=== PATIENT | male | born 1950 | race Caucasian/White ===

== ENCOUNTER → 2021-11-26 | Outpatient (CLI) | payer MEDICARE ==
[~2021-11-26] VITALS: Ht 175 cm; Wt 105.0 kg
[~2021-11-26] MED LIST: CATHETER FLUSH 10 ML SYR IVP PRN; REGADENOSON 0.4 MG/5 ML SYR (LEXISCAN) IV ONE
[2021-11-26 09:32] VITALS: BP 124/80
--- NOTE | 2021-11-26 11:31 | Cardiology Stress Test Report ---
Stress Test Report Date of Procedure/Referring: Date of Procedure: Nov 26, 2021 PCP Chen Hussein MD Admitting Physician Indications: 84 Baseline Blood Pressure: Blood Pressure Systolic: 124 Blood Pressure Diastolic: 80 Baseline Vitals Vital Signs Date Time Temp Pulse Resp B/P (MAP) Pulse Ox O2 Delivery O2 Flow Rate FiO2 11/26/21 09:32 84 124/80 (95) Baseline EKG: Baseline EKG: NSR Summary After explaining the procedure to the patient, he signed a consent and then brought to the stress nuclear laboratory. Patient received 0.4 mg Lexiscan for stress test, ECG, heart rate and blood pressure were monitored continuously. Resting and stress dose of radio tracer were injected, imaging was acquired and reviewed in short axis, horizontal long axis and vertical long axis views. TID: 0.95 SSS: 12 SDS: 6 EF: 62 1. Patient tolerated Lexiscan well 2. Reversible ischemia involving the whole inferior wall and inferolateral wall 3. Normal left ventricular size, EF 62% CHEN HUSSEIN MD Nov 26, 2021 11:31
== END ==
LOC: CARD 08:15
PROVIDERS: ATTEND Internal Medicine Cardiovascular Disease
DX: I25.10 Atherosclerotic heart disease of native coronary artery without angina pectoris (principal); I10 Essential (primary) hypertension
CPT/HCPCS: 78452; 93017; A9502

== ENCOUNTER 2021-12-05 10:00 | Day surgery (SDC) | payer MEDICARE ==
[~2021-12-05] VITALS: Ht 182.9 cm; Wt 101.0 kg
[2021-12-05] VITALS (17 sets, daily range): BP systolic 105–138; BP diastolic 65–105
--- NOTE | 2021-12-05 09:14 | Diagnostic Imaging Report ---
EXAMINATION: Chest 1 view HISTORY: ABN STRESS TEST COMPARISON: None available. FINDINGS: Heart size and pulmonary vasculature are normal. The lungs are clear without consolidation, pleural effusion, or pneumothorax. The osseous structures are intact. IMPRESSION: 1. No acute radiographic abnormality in the chest. Dictated by: Dictated on workstation # [id number]
[2021-12-05 09:15] LABS: HEMATOCRIT 47 % (40-54); HEMOGLOBIN 14.9 g/dL (13.3-17.7); MEAN CORPUSCULAR HEMOGLOBIN 29 pg (25-34); MEAN CORPUSCULAR HGB CONC 32 g/dL (32-36); MEAN CORPUSCULAR VOLUME 92 fL (80-99); MEAN PLATELET VOLUME 12.3 fL (9.0-12.2); PLATELET COUNT 214 10^3/uL (130-400); WHITE BLOOD COUNT 11.2 10^3/uL (4.3-11.0)
[2021-12-05 09:16] LABS: BILIRUBIN,URINE NEGATIVE (NEGATIVE); CLARITY,URINE SL CLOUDY; COLOR,URINE YELLOW; GLUCOSE, URINE (UA) NEGATIVE (NEGATIVE); KETONES,URINE NEGATIVE (NEGATIVE); LEUKOCYTE ESTERASE ,URINE NEGATIVE (NEGATIVE); NITRITE,URINE NEGATIVE (NEGATIVE); PH,URINE 5.5 (5-9); PROTEIN,URINE NEGATIVE (NEGATIVE)
[2021-12-05 09:34] LABS: ALBUMIN 3.7 GM/DL (3.2-4.5); BILIRUBIN,TOTAL 0.4 MG/DL (0.1-1.0); CALCIUM 9.4 MG/DL (8.5-10.1); CREATININE SERUM 1.35 MG/DL (0.60-1.30); TOTAL PROTEIN 6.9 GM/DL (6.4-8.2)
[2021-12-05 09:41] LABS: BACTERIA,URINE NEGATIVE /HPF; SQUAMOUS EPITHELIAL CELL,UR 0-2 /HPF
[2021-12-05 09:48] LABS: INR 0.9 (0.8-1.4); PROTHROMBIN TIME PATIENT 12.6 SEC (12.2-14.7)
[~2021-12-05 10:00] MED LIST changes: -CLOP75TA28 PO; +HEParin (CATH LAB) 2,000 ML IV ONE; +LIDOCAINE 1% INJ 50 ML (XYLOCAINE) VIAL ONE; +NS IV 1000 ML 1,000 ML IV SCH; +NS IV 1000 ML 1,000 ML ONE
[2021-12-05] MEDS ORDERED: VERAPAMIL 5 MG/2 ML (CALAN) VIAL IV ONE ×2 (10:11→10:15)
[2021-12-05] MEDS ORDERED: HEParin 1000 UNIT/ML (10ML VIAL) FOR BOLUS ONE (10:11)
[2021-12-05] MEDS ORDERED: MIDAZOLAM 5 MG/5 ML (VERSED) VIAL ONE (10:11)
[2021-12-05] MEDS ORDERED: NITRO DRIP 25000 MCG/D5W 250 ML IV ONE (10:11)
[2021-12-05] MEDS ORDERED: fentaNYL INJ 100 MCG/2 ML AMP ONE (10:11)
--- NOTE | 2021-12-05 10:18 | Conscious Sedation/ASA ---
Conscious Sedation Pre-Proced Time 10:18 ASA Score 3 For ASA 3 and 4: Consider anesthesia and medical clearance. Also, for patients with a history of failed moderate sedation consider anesthesia. Airway Lungs Heart ASA score ASA 1: a normal healthy patient ASA 2: a patient with a mild systemic disease (mid diabetes, controlled hypertension, obesity x ASA 3: a patient with a severe systemic disease that limits activity (angina, COPD, prior Myocardial infarction) ASA 4: a patient with an incapacitating disease that is a constant threat to life (CHF, renal failure) ASA 5: a moribund patient not expected to survive 24 hrs. (ruptured aneurysm) ASA 6: a declared brain- patient whose organs are being harvested. For emergent operations, add the letter E after the classification Mallampati Classification Grade 3 Sedation Plan Analgesia, Amnesia, Plan communicated to team members, Discussed options with patient/fam, Discussed risks with patient/fam The patient is an appropriate candidate to undergo the planned procedure, sedation, and anesthesia. The patient immediately re-assessed prior to indication. CHEN ESCALONA MD Dec 05, 2021 10:18
[2021-12-05] MEDS ORDERED: CLOPIDOGREL 300 MG (PLAVIX) TABLET PO ONE (11:22)
[2021-12-05] MEDS ORDERED: ASPIRIN 325 MG (5 GR) TABLET ONE (11:22)
[2021-12-05] MEDS ORDERED: NS IV 1000 ML 1,000 ML IV SCH (11:30)
[2021-12-05] MEDS ORDERED: PATIENT MAY USE OWN MEDS, ALL PO SCH (11:30)
--- NOTE | 2021-12-05 11:31 | Cardiac Cath Report ---
Cardiac Cath Report Physician (s)/Editor Greeting Card (s) Physician CHEN ESCALONA MD Pre-Procedure Diagnosis Pre-Procedure Diagnosis: Coronary artery disease Post-Procedure Note Procedure Start Date: Dec 05, 2021 Name of Procedure: Left heart catheterization Stenting to the circumflex artery Findings/Procedure Note PROCEDURE NOTE: 71-year-old gentleman with extensive history of coronary artery disease multiple interventions in the past, peripheral arterial disease. Had an abnormal stress test scheduled for cardiac catheterization possible PTCA. After explaining the procedure to the patient, all pros and cons were explained, all questions were answered. The patient signed the consent and then he was placed on the cardiac catheterization laboratory. Groin was prepped SL fashion local anesthesia was used. Sheath placed in the right femoral artery, I attempted multiple times to access the right radial artery without success. Patient had stent in the abdominal aorta extending in the right common iliac artery. Bradford right was advanced over a long J-wire to the left ventricular cavity, pressure was measured, pullback LV to aorta was done, intubated the right coronary artery and angiogram was done then exchanged over long J-wire and used Bradford left catheter engaged the left system and angiogram was done. Patient had total occlusion of the right coronary artery receiving collaterals from the left, severe stenosis at the mid circumflex artery and occlusion of the proper circumflex artery. 6000 units of heparin were given, FL guide was used and BMW wire was advanced to the distal obtuse marginal branch, predilatation with a 3 x 15 balloon then deployment of jany point stent 3 x 15 mm expanded to 3.1 mm with excellent results. The artery beyond the stent is a tortuous artery. The proper circumflex artery is occluded and continue to be occluded. At the end of the procedure the sheath was removed. Closure device was deployed FINDINGS: Hemodynamics LV 139/17, end-diastolic pressure of 17 Aorta 120/69 mean of 76 ANATOMY: Left Main is free of obstructive disease Left Anterior Descending is tortuous artery with mild to moderate disease. Left Circumflex is tortuous artery, severe stenosis/subtotal occlusion at the midportion, the proper circumflex artery is and receiving collaterals with very slow flow, the occluded first obtuse marginal branch is tortuous artery. Successful balloon angioplasty and stenting using jany point stent 3 x 15 mm expanded to 3.1 mm with excellent results. Right Coronary Artery is totally occluded getting filled by collaterals from the left system LV Gram was not done, pressure was measured CONCLUSION: 1. Severe/subtotal occlusion at the mid circumflex artery with successful deployment of a jany point stent 3 x 50 mm expanded to 3.1 mm with excellent results. The first obtuse marginal branch is a tortuous artery with moderate disease, the proper circumflex artery is occluded with sluggish flow by collaterals distally. 2. Total occlusion at the proximal right coronary artery, dominant artery getting collaterals from the left filleting the right system 3. Tortuous LAD calcified with mild to moderate disease 4. Aortic valve stenosis, mild to moderate at most by gradient 5. Abdominal aortic stent extending into the right common iliac and common femoral artery noted by fluoroscopy DISCUSSION AND RECOMMENDATION: Patient was loaded with aspirin and Plavix, continue to maximize medical therapy Anesthesia Type: Conscious Sedation Estimated blood loss (mL): 30 ml Contrast Amount: 105 ml Total Radiation Dose: 1488 mGy Post-Procedure Diagnosis Post-operative diagnosis: Coronary artery disease Peripheral arterial disease Hypertension Hyperlipidemia CHEN ESCALONA MD Dec 05, 2021 11:31
[2021-12-05] MEDS: buPROPion SR 100 MG (WELLBUTRIN SR) TAB PO SCH (20:15)
[2021-12-06 04:00] VITALS: BP 110/80
[2021-12-06 05:39] LABS: HEMATOCRIT 42 % (40-54); HEMOGLOBIN 13.4 g/dL (13.3-17.7); MEAN CORPUSCULAR HEMOGLOBIN 30 pg (25-34); MEAN CORPUSCULAR HGB CONC 32 g/dL (32-36); MEAN CORPUSCULAR VOLUME 93 fL (80-99); MEAN PLATELET VOLUME 12.5 fL (9.0-12.2); PLATELET COUNT 163 10^3/uL (130-400); WHITE BLOOD COUNT 8.2 10^3/uL (4.3-11.0)
--- NOTE | 2021-12-06 05:44 | Discharge Inst-Post CATH ---
Discharge Inst-CATH/EP Problems Reviewed?: Yes Post Cardiac Cath/EP D/C Inst Follow Up/Plan Appointment with Dr Hussein in 2-4 weeks <b>CARDIAC CATH/EP PROCEDURE DISCHARGE INSTRUCTIONS</b> ACTIVITY * Go Home directly and rest. * Limit activity of the leg (or wrist if it was used) for 7 days including aerobics, swimming, jogging, bicycling, etc. * Restrict stair-climbing for 7 days if possible, if not, climb up with your non-cath leg, then bring together on the same step. * Avoid lifting, pushing, pulling or excessive movement of the affected extremity for 7 days. * Customary sexual activity may be resumed after 2 days-use caution not to use a position that strains or causes pain to the affected extremity. * No driving for 24 hours. * NO SMOKING. * Avoid straining for bowel movements for 7 days. * Gentle walking on level ground is allowed. * Returning to work will depend on the type of procedure and the results. Your doctor will discuss this with you. CALL YOUR DOCTOR FOR ANY OF THE FOLLOWING: *If bleeding from the puncture site occurs- Apply gentle pressure to site with clean cloth and call your doctor or EMS. * If a knot or lump forms under the skin, increases in size, or causes pain. * If bruising appears to be worsening or moving further down your leg instead of disappearing. * Temperature above 101 F. CARE OF YOUR GROIN INCISION; * Bruising or purple discoloration of the skin near the puncture site is common. * You may shower only, no bathtub bathing for 5 days. Be careful to avoid slipping as your leg may feel stiff. * If a closure device was used on your femoral artery, please see the attached guide regarding care of the device and your leg. * Leave dressing on FOR 24 hours. CARE OF YOUR WRIST INCISION; * Bruising or purple discoloration of the skin near the puncture site is common. * You may shower. * DO NOT submerge wrist. * Leave dressing on FOR 24 hours. CHEN HUSSEIN MD Dec 06, 2021 05:44
[2021-12-06 05:47] LABS: POTASSIUM 3.8 MMOL/L (3.6-5.0)
[2021-12-06 05:48] LABS: CALCIUM 9.1 MG/DL (8.5-10.1)
[2021-12-06 05:53] LABS: CREATININE SERUM 1.22 MG/DL (0.60-1.30)
[2021-12-06] MEDS ORDERED: LEVOTHYROXINE 125 MCG (LEVOTHROID) TABLET PO SCH (06:30)
[2021-12-06 08:00] VITALS: BP 126/81
[2021-12-06] MEDS ORDERED: KCL 10 MEQ TAB (MICRO K) PO SCH (08:00)
--- NOTE | 2021-12-06 08:04 | Cardiology Progress Note ---
Subjective Date Seen by Provider: Dec 06, 2021 Time Seen by Provider: 08:03 Subjective/Events-last exam Patient was seen at bedside, laying down comfortably, denied any chest pain. Review of Systems General: No Chills, No Night Sweats, No Fatigue, No Malaise, No Appetite, No Other HEENT: No Head Aches, No Visual Changes, No Eye Pain, No Ear Pain, No Dysphasia, No Sinus Congestion, No Post Nasal Drip, No Sore Throat, No Other Pulmonary: No Dyspnea, No Cough, No Pleuritic Chest Pain, No Other Cardiovascular: No: Chest Pain, Palpitations, Orthopnea, Paroxysmal Noc. Dyspnea, Edema, Lt Headedness, Other Objective-Cardiology Exam Last Set of Vital Signs Vital Signs 12/06/21 04:00 Temp 36.4 Pulse 72 Resp 16 B/P (MAP) 110/80 (90) Pulse Ox 94 O2 Delivery Nasal Cannula O2 Flow Rate 2.00 I&O Intake and Output 12/06/21 00:00 Intake Total 250 ml Output Total 50 ml Balance 200 ml Intake Oral 250 ml Output Urine Total 50 ml General: Alert, Oriented X3, Cooperative HEENT: Atraumatic, PERRLA Neck: Supple, No JVD, No Thyromegaly Lungs: Clear to Auscultation, Normal Air Movement Heart: Regular Rate, Normal S1, Normal S2, No Murmurs Abdomen: Normal Bowel Sounds, Soft, No Tenderness, No Hepatosplenomegaly, No Masses Extremities: No Clubbing, No Cyanosis, No Edema, Normal Pulses, No Tenderness/Swelling Skin: No Rashes, No Breakdown, No Significant Lesion Neuro: Normal Gait, Normal Speech, Strength at 5/5 X4 Ext, Normal Tone, Sensation Intact Psych/Mental Status: Mental Status NL, Mood NL Results Lab Laboratory Tests 12/05/21 09:05 12/06/21 05:15 A/P-Cardiology Assessment/Plan Coronary artery disease, status post cardiac catheterization and stenting to the circumflex artery, occluded right coronary artery. 1. Severe/subtotal occlusion at the mid circumflex artery with successful deployment of a jany point stent 3 x 50 mm expanded to 3.1 mm with excellent results. The first obtuse marginal branch is a tortuous artery with moderate disease, the proper circumflex artery is occluded with sluggish flow by collaterals distally. 2. Total occlusion at the proximal right coronary artery, dominant artery getting collaterals from the left filleting the right system 3. Tortuous LAD calcified with mild to moderate disease 4. Aortic valve stenosis, mild to moderate at most by gradient 5. Abdominal aortic stent extending into the right common iliac and common femoral artery noted by fluoroscopy Hypertension, monitor blood pressure, restart home medication Mild aortic valve stenosis, noted on echo. Hyperlipidemia, monitor lipids Patient was educated in length about compliance with medication especially with aspirin and Plavix CHEN ESCALONA MD Dec 06, 2021 08:04
[2021-12-06] MEDS ORDERED: CLOP75TA28 PO (08:06)
[2021-12-06] MEDS: buPROPion SR 100 MG (WELLBUTRIN SR) TAB PO SCH (08:13)
[2021-12-06] MEDS ORDERED: FUROSEMIDE 20 MG (LASIX) TAB PO SCH (09:00)
[2021-12-06] MEDS ORDERED: NON-FORMULARY MEDICATION 1 EA EA (Potassium Chloride 10 MEQ) PO SCH (09:00)
[2021-12-06] MEDS ORDERED: amLODIPine 10 MG (NORVASC) TAB PO SCH (09:00)
[2021-12-06] MEDS ORDERED: CLOPIDOGREL 75 MG (PLAVIX) TABLET PO SCH (09:00)
[2021-12-06] MEDS ORDERED: ASPIRIN E.C. 81 MG (ECOTRIN) TAB PO SCH (09:00)
[2021-12-06] MEDS ORDERED: LEVOTHYROXINE SODIUM 125 MCG PO SCH (09:00)
[2021-12-06] MEDS ORDERED: TAMSULOSIN 0.4 MG (FLOMAX) CAP PO SCH (09:00)
== END 2021-12-06 11:24 | disposition home or self-care (01) ==
LOC: CATH 10:00 → CSD 11:58 → CATH 12-06 11:24
PROVIDERS: ATTEND Internal Medicine Cardiovascular Disease
DX: I25.10 Atherosclerotic heart disease of native coronary artery without angina pectoris (principal); I25.82 Chronic total occlusion of coronary artery; I35.0 Nonrheumatic aortic (valve) stenosis; I73.9 Peripheral vascular disease, unspecified; I10 Essential (primary) hypertension; E78.2 Mixed hyperlipidemia; E03.9 Hypothyroidism, unspecified; N40.0 Benign prostatic hyperplasia without lower urinary tract symptoms; Z86.73 Personal history of transient ischemic attack (TIA), and cerebral infarction without residual deficits; Z79.890 Hormone replacement therapy; Z79.82 Long term (current) use of aspirin; Z79.899 Other long term (current) drug therapy; Z87.891 Personal history of nicotine dependence; Z95.5 Presence of coronary angioplasty implant and graft
CPT/HCPCS: 71045; 80048; 80053; 80061; 81000; 85027 ×2; 85610; 85730; 87081; 93005; 93458; C1725; C1760; C1769; C1874; C1894; C9600; 36415

== ENCOUNTER → 2021-12-05 | Outpatient (CLI) | payer MEDICARE ==
[~2021-12-05] MED LIST changes: +AMLO10TA4 PO; +ASPI-1238 PO; +ATOR20TA66 PO; +BUPR100T8 PO; -CATHETER FLUSH 10 ML SYR IVP PRN; +CLOP75TA28 PO; +FURO20TA4 PO; +LEVO125C4 PO; +POTA10CA43 PO; -REGADENOSON 0.4 MG/5 ML SYR (LEXISCAN) IV ONE; +TMSL.4C PO
== END ==
LOC: CARD 11:15
PROVIDERS: ATTEND Internal Medicine Cardiovascular Disease
DX: I10 Essential (primary) hypertension (principal); I25.10 Atherosclerotic heart disease of native coronary artery without angina pectoris
CPT/HCPCS: 93306

== ENCOUNTER → 2022-07-26 | Outpatient (CLI) | payer MEDICARE ==
[~2022-07-26] MED LIST changes: +BUPR-104 PO; -BUPR100T8 PO; +CLOP75TA28 PO; -HEParin (CATH LAB) 2,000 ML IV ONE; -LIDOCAINE 1% INJ 50 ML (XYLOCAINE) VIAL ONE; -NS IV 1000 ML 1,000 ML IV SCH; -NS IV 1000 ML 1,000 ML ONE
[2022-07-26 08:29] LABS: BASOPHILS # (AUTO) 0.1 10^3/uL (0.0-0.1); BASOPHILS % (AUTO) 1 % (0-10); EOSINOPHILS # (AUTO) 0.4 10^3/uL (0.0-0.3); EOSINOPHILS % (AUTO) 5 % (0-10); HEMATOCRIT 45 % (40-54); HEMOGLOBIN 14.8 g/dL (13.3-17.7); LYMPHOCYTES # (AUTO) 1.9 10^3/uL (1.0-4.0); LYMPHOCYTES % (AUTO) 20 % (12-44); MEAN CORPUSCULAR HEMOGLOBIN 29 pg (25-34); MEAN CORPUSCULAR HGB CONC 33 g/dL (32-36); MEAN CORPUSCULAR VOLUME 88 fL (80-99); MEAN PLATELET VOLUME 12.5 fL (9.0-12.2); MONOCYTES # (AUTO) 0.8 10^3/uL (0.0-1.0); MONOCYTES % (AUTO) 8 % (0-12); NEUTROPHILS # (AUTO) 6.4 10^3/uL (1.8-7.8); NEUTROPHILS % (AUTO) 66 % (42-75); PLATELET COUNT 204 10^3/uL (130-400); WHITE BLOOD COUNT 9.6 10^3/uL (4.3-11.0)
[2022-07-26 10:27] LABS: ALBUMIN 3.8 GM/DL (3.2-4.5); BILIRUBIN,TOTAL 0.3 MG/DL (0.1-1.0); CREATININE SERUM 1.45 MG/DL (0.60-1.30); TOTAL PROTEIN 6.6 GM/DL (6.4-8.2)
== END ==
LOC: LAB FS 07:44
PROVIDERS: ATTEND Internal Medicine
DX: Z12.5 Encounter for screening for malignant neoplasm of prostate (principal)
CPT/HCPCS: 36415; 80053; 80061; 84153; 84443; 85025

== ENCOUNTER 2022-11-04 07:44 | Emergency (ER) | payer MEDICARE ==
[~2022-11-04] VITALS: Ht 167 cm; Wt 100.0 kg
[~2022-11-04 07:44] MED LIST changes: -POTA10CA43 PO; +POTA10CA44 PO
[2022-11-04] MEDS ORDERED: KETOROLAC 15 MG/ML VIAL IVP STA (07:58)
[2022-11-04] MEDS ORDERED: ONDANSETRON 4 MG/2 ML (SDV) Z0FRAN IVP STA (07:58)
[2022-11-04] MEDS ORDERED: NS IV 1000 ML 1,000 ML IV STA (07:58)
[2022-11-04 08:18] LABS: BASOPHILS # (AUTO) 0.1 10^3/uL (0.0-0.1); BASOPHILS % (AUTO) 1 % (0-10); EOSINOPHILS # (AUTO) 0.6 10^3/uL (0.0-0.3); EOSINOPHILS % (AUTO) 6 % (0-10); HEMATOCRIT 45 % (40-54); HEMOGLOBIN 15.2 g/dL (13.3-17.7); LYMPHOCYTES # (AUTO) 2.1 10^3/uL (1.0-4.0); LYMPHOCYTES % (AUTO) 22 % (12-44); MEAN CORPUSCULAR HEMOGLOBIN 30 pg (25-34); MEAN CORPUSCULAR HGB CONC 34 g/dL (32-36); MEAN CORPUSCULAR VOLUME 89 fL (80-99); MEAN PLATELET VOLUME 12.8 fL (9.0-12.2); MONOCYTES # (AUTO) 0.7 10^3/uL (0.0-1.0); MONOCYTES % (AUTO) 8 % (0-12); NEUTROPHILS % (AUTO) 63 % (42-75); PLATELET COUNT 149 10^3/uL (130-400); WHITE BLOOD COUNT 9.6 10^3/uL (4.3-11.0)
--- NOTE | 2022-11-04 08:23 | ED General ---
General Chief Complaint: Upper Extremity Stated Complaint: SYNCOPAL EPISODE Source of Information: Patient, Family (son, DPOA, acting as independent historian providing more detailed information about patient and his symptoms), Old Records (Reviewed notes from Med Surg Nurse, Dr. Hussein, when patient had nucl ear stress test 11/26/2021, echocardiogram and heart cath with stent placement 12/05-06/2022) Exam Limitations: Other (pain) History of Present Illness Date Seen by Provider: Nov 04, 2022 Time Seen by Provider: 07:46 Initial Comments 72 yo male presenting by private vehicle from home with his son who is his DPOA and patient lives with him. Patient is complaining of pain in his neck and going into his right shoulder and arm. He states that that had started last night however the son reports this is been going on for over a week now. He d enies having any fall or injury so the son initially thought that he had maybe slept on his arm wrong. He has been giving him Aleve at home for the pain. He had told the patient that they should try and get in with the doctor to get checked but the patient kept pushing it off. Finally over the weekend he agreed to go see the doctor so they had planned to make an appointment this morning, however patient was feeling worse this morning so his son brought him to the emergency department. The son notes that the patient had a syncopal episode in the vehicle on the way here to the emergency department. Son notes that family members had COVID last week and tried to isolate and quarantine for from the patient since he lives in the lower level of the same house. However the could not completely isolate and quarantine from him since he does live in the same house so the son was concerned patient might have COVID. He thought that could be part of the muscle pain and body aches. Timing/Duration: 1 Week (over a week of symptoms) Severity: Severe (patient reports pain is 10 out of 10 for his right arm, chest wall and right side of neck) Modifying Factors: worse with Movement Associated Systoms: Chest Pain (right sided chest wall pain); No Cough, No Diaphoresis, No Fever/Chills, No Headaches, No Loss of Appetite; Malaise, Nausea/Vomiting (x1 last night); No Rash, No Seizure, No Shortness of Air; Syncope, Weakness (generalized) Allergies and Home Medications Allergies Coded Allergies: No Known Drug Allergies (Unverified , 11/26/21) Patient Home Medication List Home Medication List Reviewed: Yes Amlodipine Besylate (Norvasc) 10 Mg Tablet, 10 MG PO DAILY, (Reported) Entered as Reported by: CARMELO CONCEPCION on 12/05/21922 Aspirin (Aspirin EC) 81 Mg Tablet.dr, 81 MG PO DAILY, (Reported) Entered as Reported by: CARMELO CONCEPCION on 12/05/21922 Atorvastatin Calcium (Atorvastatin Calcium) 20 Mg Tablet, 20 MG PO HS, (Reported) Entered as Reported by: CARMELO CONCEPCION on 12/05/21922 Bupropion HCl (Bupropion HCl Sr) 100 Mg Tablet.er, 100 MG PO BID, (Reported) Entered as Reported by: CARMELO CONCEPCION on 12/05/21922 Clopidogrel Bisulfate (Clopidogrel) 75 Mg Tablet, 75 MG PO DAILY Prescribed by: CHEN HUSSEIN on 12/06/21805 Furosemide (Furosemide) 20 Mg Tablet, 20 MG PO DAILY, (Reported) Entered as Reported by: CARMELO CONCEPCION on 12/05/21922 Levothyroxine Sodium (Levothyroxine) 125 Mcg Capsule, 125 MCG PO DAILY, (Reported) Entered as Reported by: CARMELO CONCEPCION on 12/05/21922 Methocarbamol (Methocarbamol) 750 Mg Tablet, 750 MG PO Q8H PRN for muscle spasms/neck pain Prescribed by: REMEDIOS CARREON on 11/04/22 100 Potassium Chloride (Potassium Chloride) 10 Meq Capsule.er, 10 MEQ PO DAILY, ( Reported) Entered as Reported by: CARMELO CONCEPCION on 12/05/21922 Tamsulosin HCl (Flomax) 0.4 Mg Cap, 0.4 MG PO DAILY, (Reported) Entered as Reported by: CARMELO CONCEPCION on 12/05/21923 Review of Systems Review of Systems Constitutional: No chills, No fever; malaise EENTM: no symptoms reported; No nose congestion Respiratory: No cough, No short of breath Cardiovascular: chest pain (right sided chest pain worse with palpation and movement) Gastrointestinal: see HPI, nausea, vomiting (reports emesis last night) Genitourinary: no symptoms reported Musculoskeletal: see HPI, muscle pain (right arm and right chest wall and right paraspinal muscles of neck), neck pain Skin: No change in color (no bruising noted), No rash Psychiatric/Neurological: Anxiety; Denies Headache; Tingling (bilateral pinky fingers), Weakness (generalized) Hematologic/Lymphatic: Denies Blood Clots Immunological/Allergic: no symptoms reported Past Nsxmqov-Acglqv-[id number] Hx Patient Social History Tobacco Use?: No Smoking Status: Former Smoker Use of E-Cig and/or Vaping dev: No Substance use?: No Alcohol Use?: No Past Medical History Surgery/Hospitalization HX: Hypertension, hyperlipidemia, hypothyroid, BPH, coronary artery disease with stent in 2018 and December 05, 2021, peripheral artery disease, renal stent, femoral stent, AAA with graft in June 2020, multiple TIAs, loop recorder Surgeries: Yes Abdominal (AAA stent 06/2020), Coronary Stent, Vascular Surgery (AAA stent 06/2020, Renal stent, femoral stent) Respiratory: Yes COPD Currently Using CPAP: No Cardiac: Yes Aneurysm, Coronary Artery Disease, High Cholesterol, Hypertension, Peripheral Vascular, Valvular Heart Disease (Aortic Valve stenosis mild on echo November 2021) Neurological: Yes TIA Genitourinary: Yes Benign Prostatic Hyperpl, UTI-Chronic Gastrointestinal: No Musculoskeletal: No Endocrine: Yes Hypothyroidsim HEENT: No Cancer: No Psychosocial: Yes Depression Integumentary: No Physical Exam Vital Signs Vital Signs - First Documented 11/04/22 08:17 Temp 35.8 Pulse 73 Resp 18 B/P (MAP) 165/99 (121) Pulse Ox 98 O2 Delivery Room Air Capillary Refill : Height, Weight, BMI Height: '" Weight: lbs. oz. kg; 30.19 BMI Method: General Appearance: Anxious, Chronically ill, Obese Eyes: Bilateral Eye PERRL, Bilateral Eye EOMI HEENT: No Moist Mucous Membranes (slightly dry mucous membranes) Neck: Full Range of Motion, Supple, Tender Lateral (right sided paraspinal muscles tender to palpation extending to the trapezius muscle) Respiratory: No Chest Non Tender (tender to palpation on right side of chest without crepitus or step off or ecchymosis); Lungs Clear, Normal Breath Sounds, No Accessory Muscle Use, No Respiratory Distress Cardiovascular: Regular Rate, Rhythm, No Edema, Normal Peripheral Pulses Gastrointestinal: Normal Bowel Sounds, No Pulsatile Mass, Non Tender, Soft Rectal: Deferred Back: No CVA Tenderness, Other (tender to palpation along right posterior chest wall without crepitus or step off) Extremity: Normal Capillary Refill; No Non Tender (tender to palpation along right chest wall and right arm from neck, trapezius and extending down his right arm); No Calf Tenderness, No Pedal Edema Neurologic/Psychiatric: Alert, Oriented x3; No Normal Mood/Affect (anxious about his pain and not feeling well); 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 as Tested; No Facial Droop; Other (equal care consultant but poor effort bilaterally) Skin: Normal Color, Warm/Dry; No Ecchymosis Progress/Results/Core Measures Suspected Sepsis SIRS Temperature: Pulse: Respiratory Rate: Laboratory Tests 11/04/22 07:56: White Blood Count 9.6 Blood Pressure / Mean: Laboratory Tests 11/04/22 07:56: Creatinine 1.39H, INR Comment 0.9, Platelet Count 149, Total Bilirubin 0.3 Results/Orders Lab Results Laboratory Tests Test 11/04/22 07:56 11/04/22 08:12 11/04/22 08:39 Range/Units White Blood Count 9.6 4.3-11.0 10^3/uL Red Blood Count 5.10 4.30-5.52 10^6/uL Hemoglobin 15.2 13.3-17.7 g/dL Hematocrit 45 40-54 % Mean Corpuscular Volume 89 80-99 fL Mean Corpuscular Hemoglobin 30 25-34 pg Mean Corpuscular Hemoglobin Concent 34 32-36 g/dL Red Cell Distribution Width 14.6 H 10.0-14.5 % Platelet Count 149 130-400 10^3/uL Mean Platelet Volume 12.8 H 9.0-12.2 fL Immature Granulocyte % (Auto) 1 % Neutrophils (%) (Auto) 63 42-75 % Lymphocytes (%) (Auto) 22 12-44 % Monocytes (%) (Auto) 8 0-12 % Eosinophils (%) (Auto) 6 0-10 % Basophils (%) (Auto) 1 0-10 % Neutrophils # (Auto) 6.0 1.8-7.8 10^3/uL Lymphocytes # (Auto) 2.1 1.0-4.0 10^3/uL Monocytes # (Auto) 0.7 0.0-1.0 10^3/uL Eosinophils # (Auto) 0.6 H 0.0-0.3 10^3/uL Basophils # (Auto) 0.1 0.0-0.1 10^3/uL Immature Granulocyte # (Auto) 0.1 0.0-0.1 10^3/uL Prothrombin Time 12.7 12.2-14.7 SEC INR Comment 0.9 0.8-1.4 Activated Partial Thromboplast Time 29 24-35 SEC D-Dimer 0.47 0.00-0.49 UG/ML Sodium Level 138 135-145 MMOL/L Potassium Level 4.2 3.6-5.0 MMOL/L Chloride Level 103 98-107 MMOL/L Carbon Dioxide Level 23 21-32 MMOL/L Anion Gap 12 5-14 MMOL/L Blood Urea Nitrogen 22 H 7-18 MG/DL Creatinine 1.39 H 0.60-1.30 MG/DL Estimat Glomerular Filtration Rate 54 BUN/Creatinine Ratio 16 Glucose Level 112 H 70-105 MG/DL Calcium Level 9.4 8.5-10.1 MG/DL Corrected Calcium 9.2 8.5-10.1 MG/DL Magnesium Level 2.2 1.6-2.4 MG/DL Total Bilirubin 0.3 0.1-1.0 MG/DL Aspartate Amino Transf (AST/SGOT) 17 5-34 U/L Alanine Aminotransferase (ALT/SGPT) 17 0-55 U/L Alkaline Phosphatase 122 40-136 U/L Troponin I < 0.30 <0.30 NG/ML Pro-B-Type Natriuretic Peptide 100.8 <125.0 PG/ML Total Protein 6.9 6.4-8.2 GM/DL Albumin 4.2 3.2-4.5 GM/DL Lipase 30 8-78 U/L Smear Scan OK Influenza Type A (RT-PCR) Not Detected Not Detecte Influenza Type B (RT-PCR) Not Detected Not Detecte SARS-CoV-2 RNA (RT-PCR) Not Detected Not Detecte Urine Color YELLOW Urine Clarity CLEAR Urine pH 6.0 5-9 Urine Specific [place] 1.025 H 1.016-1.022 Urine Protein NEGATIVE NEGATIVE Urine Glucose (UA) NEGATIVE NEGATIVE Urine Ketones NEGATIVE NEGATIVE Urine Nitrite NEGATIVE NEGATIVE Urine Bilirubin NEGATIVE NEGATIVE Urine Urobilinogen 0.2 < = 1.0 MG/DL Urine Leukocyte Esterase NEGATIVE NEGATIVE Urine RBC (Auto) NEGATIVE NEGATIVE Urine RBC NONE /HPF Urine WBC RARE /HPF Urine Squamous Epithelial Cells 0-2 /HPF Urine Crystals NONE /LPF Urine Bacteria NEGATIVE /HPF Urine Casts NONE /LPF Urine Mucus SMALL H /LPF Urine Culture Indicated NO My Orders Orders - REMEDIOS CARREON MD Cbc With Automated Diff (11/04/22 07:58) Magnesium (11/04/22 07:58) Ekg Tracing (11/04/22 07:58) Comprehensive Metabolic Panel (11/04/22 07:58) Protime With Inr (11/04/22 07:58) Partial Thromboplastin Time (11/04/22 07:58) O2 (11/04/22 07:58) Monitor-Rhythm Ecg Trace Only (11/04/22 07:58) Ed Iv/Invasive Line Start (11/04/22 07:58) Lipase (11/04/22 07:58) Troponin I Fs (11/04/22 07:58) Probnp Fs (11/04/22 07:58) Ct Head/Cervical Spine Wo (11/04/22 07:58) Ct Chest Wo (11/04/22 07:58) Fibrin Degradation Products (11/04/22 07:58) Ua Culture If Indicated (11/04/22 07:58) Ondansetron Injection (Zofran Injectio (11/04/22 07:58) Ketorolac Injection (Toradol Injection) (11/04/22 07:58) Ns Iv 1000 Ml (Sodium Chloride 0.9%) (11/04/22 07:58) Covid 19 Inhouse Test (11/04/22 08:16) Influenza A And B By Pcr (11/04/22 08:16) Orphenadrine Inj (Ed Only) (Norflex Inje (11/04/22 09:47) Vital Signs/I&O 11/04/22 11/04/22 08:17 10:05 Temp 35.8 Pulse 73 71 Resp 18 16 B/P (MAP) 165/99 (121) 104/82 Pulse Ox 98 96 O2 Delivery Room Air Room Air Capillary Refill : Progress Note #1: Progress Note Potential life-threatening conditions of stroke, sepsis, myocardial infarction, pulmonary embolism, lung cancer, renal failure, hepatic failure, electrolyte imbalance, brain tumor. Place patient on cardiac telemetry monitoring since he had a syncopal event in the vehicle on the way to the emergency department this morning. My initial interpretation of his cardiac telemetry monitoring shows a normal sinus rhythm with a heart rate 72 bpm without ectopy or ischemia. Ordered electrocardiogram to look for signs of acute myocardial infarction or ischemia or arrhythmia. Obtain peripheral IV access and ordered labs to look at blood count for signs of infection, anemia, coagulopathy, clotting factors to look for coagulopathy, c omprehensive metabolic profile to look for electrolyte imbalance, renal failure, hepatic failure, lipase to look for pancreatitis, troponin and proBNP for cardiac markers to look for signs of acute cardiac ischemia or heart failure, urinalysis to look for signs of infection, has hydration status, renal failure, nasal swab to evaluate for potential COVID or influenza infection. Son reports that family members had COVID last week and tried to isolate from the patient but patient does live in the lower level of the same house so family could not fully isolate and quarantine from him. Ordered CT scan of the head and cervical spine looking for signs of acute ischemia for stroke, bleeding for stroke or trauma from a fall, fracture, cervical spine fracture, cervical spinal stenosis, brain tumor, mass. CT scan of the chest without contrast looking for rib fractures, scapular fracture, shoulder injury, pneumonia, pneumothorax, hemothorax, pleural effusion. Ordered normal saline 1 L IV fluid bolus for hydration as patient has a dry mouth and had a syncopal episode this morning. Since he reported having nausea and an episode of vomiting overnight ordered Zofran 4 mg IV x1. As he was complaining of right sided neck shoulder, arm, chest wall pain a dose of Toradol 15 mg IV was ordered. My initial interpretation and review of his electrocardiogram shows no acute ST elevation and looks similar to tracing from December 06, 2021. Progress Note #2: Time: 08:38 Progress Note On my personal interpretation and review of his CT scan of head and cervical spine without contrast I did not see any acute bleeding, fracture, acute ischemia, brain mass. My personal interpretation and review of his CT scan of chest without contrast he did not have any acute rib fractures, pneumonia, pneumothorax, effusion. Patient's son did come to the office where I was charting on the patient and reviewing his medical record for additional information and history on the patient. He asked to know what testing was being done on the patient so I reviewed with him the basic labs and imaging tests that were being ordered as well as noted to him that I had updated the dry erase board in the room with the tests and basic information for this morning. He stated that he would like the patient to be transferred to [facility] if he was still having pain because he wanted cardiology to evaluate him. He stated that he knew Dr. Hussein was not on today but would still want the patient to go there. I told him that if patients needed admitted that we do try to get them to [facility]. I also advised him it takes at least 45 minutes to an hour to start getting some test results back on the patient. Complete blood count is back on patient and shows WBC count is not elevated to indicate infection. Hemoglobin was 15.2 which helps rule out anemia. Nasal swab was negative for Covid and Influenza. Awaiting urinalysis, comprehensive metabolic profile, troponin, proBNP, Clotting factors. Progress Note #3: Time: 09:11 Progress Note I reviewed the radiologist report on the CT scan of the head and cervical spine without contrast as well as a CT scan of the chest without contrast at 0847. The radiologist did not see acute stroke, bleeding, mass, fractures, pneumonia, pneumothorax, infiltrate, effusion. He did note chronic microvascular changes in the brain and pulmonary nodules less than 4 mm in left upper lobe. He advised if the patient had increased risk for malignancy he should have repeat imaging in 6 to 12 months to further evaluate the nodules and look for any acute changes. Urinalysis did increase specific gravity of 1.025 which could indicate some dehydration. We have no indications of urinary tract infection on the specimen. His coagulation factors were in the normal range and not elevated. His D-dimer was in the normal range at 0.47. This would help to rule out pulmonary embolism or blood clot. His comprehensive metabolic profile showed slight elevation of his BUN to 22 and creatinine at 1.39. This would go with some mild dehydration or some mild chronic renal insufficiency. His troponin was less than 0.3 which is negative for acute ischemic changes or myocardial infarction. Considering his symptoms of been going on for a week and worse all night he has had symptoms for more than 6 hours so I would expect that this should be elevated if his condition was related to acute coronary syndrome or myocardial infarction. His liver enzymes and lipase were not elevated to indicate any liver failure or pancreatitis. Comparing his metabolic profile to July 26, 2022 when he last had labs through the [facility] system he had a BUN of 26 and a creatinine of 1.45 at that time. Today's renal function is slightly improved from that umer almaguer in June 2022. As patient had syncopal event this am in the vehicle on the way to the emergency department and was complaining of right chest wall and arm pain will check with Hospitalist payroll consultant for his PCP, Dr. Libertad Gamboa. Dr. Bright is the Hospitalist payroll consultant today so will discuss and review the case with her about possible admit since he had syncope and chest/arm pain despite IV fluids and anti-inflammatory pain medicine. He does look like he might be slightly dehydrated with his elevated specific gravity and renal function, so this could be part of why he passed out in the car but he was not being monitored at the time so unable to say if he had arrhythmia or hypotension to cause his syncope. Sent a page to Dr. Bright at 0932. Progress Note #4: Time: 09:41 Progress Note I discussed with Dr. Birght, the hospitalist, that patient had neck and right arm pain with syncopal event this am. His labs showed some dehydration and he had negative labs for acute ischemia/myocardial infarction. No infection showing on his tests. CT scans negative for acute stroke, bleeding, pneumonia. She said that since he did get some IV fluids for hydration this am she was ok with admit if the family and patient were concerned and wanted him monitored longer than what can be done here in the ED she could place him for observation. However, if the family wanted to go home they could work with Dr. Gamboa for outpatient work up of syncope and arm pain. after discussion with the son and patient they wanted to try things at home. Will give Norflex 30 mg IV here in ED for muscle relaxer to try and help pain in his neck and right arm. For home will prescribe Robaxin 750 mg p.o. 3 times daily as needed muscle spasms and neck pain. Counseled that they could use [id number] acetaminophen and or naproxen to help with pain as well. If he was having new or worsening symptoms then return or seek additional evaluation. Follow-up with Dr. Gamboa for further work-up of his syncope and neck and arm pain. Counseled patient and son about nodules in the left upper lobe of his lung that were less than 4 mm but because of his smoking history he would have an increased risk of malignancy. Due to this they would recommend having a repeat CT scan done in 6 to 12 months to ensure that these areas were not changing. Advised to have Dr. Gamboa follow-up on this. Patient did state that his pain was better with treatment in the ED but that it was still there. I did discuss possibility of prescribing a narcotic for pain but the son wanted to try the muscle relaxer first in case his dad had slept on his neck and shoulder wrong and that was causing his symptoms. I advised him that the muscle x-rays can make him sleepy and unsteady as well so it is a as needed or as needed medicine and he does not have to get on a scheduled basis. We will try a low-dose of methocarbamol at 750 mg up to every 8 hours as needed. This 1 should be less sedating than cyclobenzaprine or some of the other muscle relaxers. Again he could also continue [id number] medicine in addition to this. Since he was not showing any acute findings for stroke, heart attack, renal failure, electrolyte imbalance, pulmonary embolism, brain tumor, cervical spine fracture, it was felt that he was safe to be discharged home and continue outpatient work-up. Stressed return precautions and counseled on follow-up with Dr. Gamboa and Dr. Hussein. ECG Initial ECG Impression Date: Nov 04, 2022 Initial ECG Impression Time: 07:50 Initial ECG Rate: 75 Initial ECG Rhythm: Normal Sinus Initial ECG Comparisson: Unchanged (12/06/2021) Comment On my personal interpretation and review of his electrocardiogram shows normal sinus rhythm with a heart rate of 75 bpm. He has a left axis deviation. His [place] interval is 173 ms. He has QT interval 371 ms with a QTc interval 399 ms. He has no acute ST elevation. He has prior tracing from December 06, 2021 that appears similar to today's tracing. Diagnostic Imaging Diagonstic Imaging: CT Plain Films/CT/US/NM/MRI: c-spine, head Comments NAME: SWETHACASITLLO Segal MED REC#: [id number] PT STATUS: REG ER : 1950 PHYSICIAN: REMEDIOS CARREON MD ADMIT DATE: 11/04/22/ER FS Draft Date of Exam:11/04/22 CT HEAD/CERVICAL SPINE WO EXAMINATION: CT head and CT cervical spine without contrast. TECHNIQUE: Multiple contiguous axial images were obtained through the brain and cervical spine without the use of intravenous contrast. Sagittal and coronal reformations through the cervical spine were then performed. All CT scans use one or more of the following dose optimizing techniques: automated exposure control, MA and/or KvP adjustment based on patient size and exam type or iterative reconstruction. HISTORY: neck pain, syncope, right arm/chest pain COMPARISON: None available. FINDINGS: HEAD: Mild diffuse cerebral volume loss with proportional enlargement of the ventricles and sulci. Mild hypodensities throughout the supratentorial white matter of both cerebral hemispheres. No acute intracranial hemorrhage or abnormal extra-axial fluid collections are present. Calcification of the intracranial ICAs. No hyperdense vessel. The calvarium is intact. The mastoid air cells are clear. There is complete opacification of the left maxillary sinus. The orbits are normal. C-SPINE: There is grade 1 anterolisthesis of C2 on C3. Vertebral body heights are maintained. No acute fracture, dislocation, or destructive osseous process. Mild facet hypertrophy without perched facets. There is multilevel cervical spondylosis. The paraspinous soft tissues are normal. The visualized thyroid gland is normal. The visualized lung apices are normal. IMPRESSION: 1. No acute intracranial abnormality. Chronic microangiopathy and volume loss. 2. Degenerative changes of the cervical spine without acute osseous abnormality. Dictated on workstation # [id number] Dict: 11/04/22 0835 Trans: 11/04/22 0840 [id number] Interpreted by: NELDA GALARZA DO Electronically signed by: Reviewed: Reviewed by Me (I reviewed Radiologist report at 0846) Diagonstic Imaging: CT Plain Films/CT/US/NM/MRI: chest Comments [facility] [place] NAME: CASTILLO POSADA REC#: [id number] PT STATUS: REG ER : 1950 PHYSICIAN: REMEDIOS CARREON MD ADMIT DATE: 11/04/22/ER FS Draft Date of Exam:11/04/22 CT CHEST WO EXAMINATION: CT chest without contrast. TECHNIQUE: Multiple contiguous axial images were obtained through the chest without the use of intravenous contrast. All CT scans use one or more of the following dose optimizing techniques: automated exposure control, MA and/or KvP adjustment based on patient size and exam type or iterative reconstruction. HISTORY: neck pain, syncope, right arm/chest pain COMPARISON: None FINDINGS: Thyroid: The thyroid is normal. Mediastinum: Heart size is normal with small pericardial effusion. Calcifications of the aorta and coronary vessels. Thoracic aorta is normal in caliber. There are calcified mediastinal lymph nodes. No pathologically enlarged lymphadenopathy. Lungs and airways: The lungs are clear without consolidation, pleural effusion, or pneumothorax. Atelectasis or scarring within the lung bases. There are scattered pulmonary nodules measuring up to 0.4 cm in the left upper lobe on (series 5 image 109). The airways are normal. Upper abdomen: The subphrenic structures are normal. Musculoskeletal: Degenerative changes of the spine without suspicious osseous lesion or compression fracture. IMPRESSION: 1. No acute abnormality in the chest. 2. Pulmonary nodules measuring up to 0.4 cm. If patient is high-risk for malignancy, consider followup CT chest in 6-12 months. Dictated on workstation # [id number] Dict: 11/04/22 0838 Trans: 11/04/22 0842 CV [id number] Interpreted by: NELDA GALARZA DO Electronically signed by: Reviewed: Reviewed by Me (I reviewed Radiologist report at 0847) Departure Impression Primary Impression: Syncope Qualified Codes: R55 - Syncope and collapse Additional Impressions: Pain of right upper extremity Right-sided chest wall pain Dehydration Cervical radiculopathy, acute Pulmonary nodule less than 6 mm determined by computed tomography of lung Disposition: 01 HOME, SELF-CARE Condition: Stable Departure-Patient Inst. Decision time for Depature: 10:02 Referrals: LIBERTAD GAMBOA MD (PCP) Primary Care Physician Patient Instructions: Dehydration, Adult ED, Fainting, Adult ED, Incidental Findings, Multiple Pulmonary Nodules Add. Discharge Instructions: Your tests this morning do not show signs of a stroke, mass or tumor, spinal cord compression, fractures. It does look like you are a little dehydrated so you need to drink more water to help stay well hydrated. Follow up with Dr. Gamboa for further evaluation about your pain and episode of passing out this morning. In the meantime, for your pain take the muscle relaxer as needed to help with pain and muscle spasms in your neck, right arm and right chest wall. You may also take Acetaminophen over the counter and/or Naproxen (Aleve) over the counter to try and help with your symptoms. If you have new problems or more symptoms you could certainly return for another evaluation or check with Dr. Gamboa. On your CT scan of the chest the radiologist did notice some nodules in the left upper lobe of your lung that were all less than 4 mm. With your history of tobacco use we would recommend you have Dr. Gamboa repeat a CT scan in 6 to 12 months to see if there is any change in the nodules. All discharge instructions reviewed with patient and/or family. Voiced un derstanding. Scripts Methocarbamol (Methocarbamol) 750 Mg Tablet 750 MG PO Q8H PRN for muscle spasms/neck pain for 7 Days, #21 TAB 0 Refills Prov: REMEDIOS CARREON MD 11/04/22 REMEDIOS CARREON MD Nov 04, 2022 08:23
[2022-11-04 08:38] LABS: SMEAR SCAN COMMENT OK
--- NOTE | 2022-11-04 08:40 | Diagnostic Imaging Report ---
EXAMINATION: CT head and CT cervical spine without contrast. TECHNIQUE: Multiple contiguous axial images were obtained through the brain and cervical spine without the use of intravenous contrast. Sagittal and coronal reformations through the cervical spine were then performed. All CT scans use one or more of the following dose optimizing techniques: automated exposure control, MA and/or KvP adjustment based on patient size and exam type or iterative reconstruction. HISTORY: neck pain, syncope, right arm/chest pain COMPARISON: None available. FINDINGS: HEAD: Mild diffuse cerebral volume loss with proportional enlargement of the ventricles and sulci. Mild hypodensities throughout the supratentorial white matter of both cerebral hemispheres. No acute intracranial hemorrhage or abnormal extra-axial fluid collections are present. Calcification of the intracranial ICAs. No hyperdense vessel. The calvarium is intact. The mastoid air cells are clear. There is complete opacification of the left maxillary sinus. The orbits are normal. C-SPINE: There is grade 1 anterolisthesis of C2 on C3. Vertebral body heights are maintained. No acute fracture, dislocation, or destructive osseous process. Mild facet hypertrophy without perched facets. There is multilevel cervical spondylosis. The paraspinous soft tissues are normal. The visualized thyroid gland is normal. The visualized lung apices are normal. IMPRESSION: 1. No acute intracranial abnormality. Chronic microangiopathy and volume loss. 2. Degenerative changes of the cervical spine without acute osseous abnormality. Dictated by: Dictated on workstation # [id number]
--- NOTE | 2022-11-04 08:42 | Diagnostic Imaging Report ---
EXAMINATION: CT chest without contrast. TECHNIQUE: Multiple contiguous axial images were obtained through the chest without the use of intravenous contrast. All CT scans use one or more of the following dose optimizing techniques: automated exposure control, MA and/or KvP adjustment based on patient size and exam type or iterative reconstruction. HISTORY: neck pain, syncope, right arm/chest pain COMPARISON: None FINDINGS: Thyroid: The thyroid is normal. Mediastinum: Heart size is normal with small pericardial effusion. Calcifications of the aorta and coronary vessels. Thoracic aorta is normal in caliber. There are calcified mediastinal lymph nodes. No pathologically enlarged lymphadenopathy. Lungs and airways: The lungs are clear without consolidation, pleural effusion, or pneumothorax. Atelectasis or scarring within the lung bases. There are scattered pulmonary nodules measuring up to 0.4 cm in the left upper lobe on (series 5 image 109). The airways are normal. Upper abdomen: The subphrenic structures are normal. Musculoskeletal: Degenerative changes of the spine without suspicious osseous lesion or compression fracture. IMPRESSION: 1. No acute abnormality in the chest. 2. Pulmonary nodules measuring up to 0.4 cm. If patient is high-risk for malignancy, consider followup CT chest in 6-12 months. Dictated by: Dictated on workstation # [id number]
[2022-11-04 08:45] LABS: BILIRUBIN,URINE NEGATIVE (NEGATIVE); CLARITY,URINE CLEAR; COLOR,URINE YELLOW; GLUCOSE, URINE (UA) NEGATIVE (NEGATIVE); KETONES,URINE NEGATIVE (NEGATIVE); LEUKOCYTE ESTERASE ,URINE NEGATIVE (NEGATIVE); NITRITE,URINE NEGATIVE (NEGATIVE); PROTEIN,URINE NEGATIVE (NEGATIVE)
[2022-11-04 08:47] LABS: POTASSIUM 4.2 MMOL/L (3.6-5.0)
[2022-11-04 08:48] LABS: ALBUMIN 4.2 GM/DL (3.2-4.5); BILIRUBIN,TOTAL 0.3 MG/DL (0.1-1.0); CALCIUM 9.4 MG/DL (8.5-10.1); CREATININE SERUM 1.39 MG/DL (0.60-1.30); MAGNESIUM 2.2 MG/DL (1.6-2.4); TOTAL PROTEIN 6.9 GM/DL (6.4-8.2)
[2022-11-04 08:53] LABS: BACTERIA,URINE NEGATIVE /HPF; SQUAMOUS EPITHELIAL CELL,UR 0-2 /HPF; WBC,URINE RARE /HPF
[2022-11-04 08:59] LABS: FIBRIN DEGRADATION PRODUCTS 0.47 UG/ML (0.00-0.49); INR 0.9 (0.8-1.4); PROTHROMBIN TIME PATIENT 12.7 SEC (12.2-14.7)
[2022-11-04] MEDS ORDERED: ORPHENADRINE 60 MG/2 ML (NORFLEX) AMP (ED ONLY) IVP STA (09:47)
[2022-11-04] MEDS ORDERED: METH-732 PO (10:04)
[2022-11-04 10:05] VITALS: BP 104/82
== END 2022-11-04 10:15 | disposition home or self-care (01) ==
LOC: EDUNIT# 07:44 → ER FS 07:45
DX: M54.12 Radiculopathy, cervical region (principal); R07.89 Other chest pain; M25.511 Pain in right shoulder; M79.601 Pain in right arm; E86.0 Dehydration; R55 Syncope and collapse; R91.1 Solitary pulmonary nodule; Z87.891 Personal history of nicotine dependence; Z20.822 Contact with and (suspected) exposure to COVID-19
CPT/HCPCS: 36415; 70450; 71250; 72125; 80053; 81000; 83690; 83735; 83880; 84484; 85025; 85379; 85610; 85730; 87636; 93005; 93041

== ENCOUNTER 2023-01-27 20:57 | Emergency (ER) | payer MEDICARE ==
[~2023-01-27 20:57] MED LIST changes: +METH-732 PO
[2023-01-27] MEDS ORDERED: NS IV 1000 ML 1,000 ML IV STA (21:10)
--- NOTE | 2023-01-27 21:15 | ED Fall/Injury ---
General Chief Complaint: Trauma-Non Activation Stated Complaint: FALL Source: patient History of Present Illness Date Seen by Provider: January 27, 2023 Time Seen by Provider: 20:59 Initial Comments 72-year-old male presenting with EMS from home due to complaints of not feeling well during the day. He had a standing height fall when he went home his recliner to go to the bathroom. He denies hitting his head or losing consciousness. He denies injuries from the fall. He felt dizzy and lightheaded when he stood up. He did have some mild nausea and EMS administered Zofran 4 mg IV prior to arrival. He reports that the nausea has resolved and he has had no further emesis since 1 episode right after he ate. He reports not eating all day and then he had 2 cheeseburgers and 2 orders of fries as well as a large sweet tea. He denies having abdominal pain, pain with urination, blood in his urine or stool. He reports having a loose stool earlier today. He denies having fever or chills. He is not having any chest pain or shortness of breath. Occurred: this evening Injuries/Pain Location: no injury Context: lost balance Loss of Consciousness: no loss of consciousness Associated Symptoms (Fall): No Abdominal Pain, No Chest Pain, No Confusion; Dizziness; No Headache; Lightheadedness; No Muscle Spasms; Nausea/Vomiting (x1 just prior to fall); No Neck Pain, No Ringing in Ears, No Seizures, No Shortness of Air; Slurred Speech, Trouble Walking (weakness); No Vision Changes Allergies and Home Medications Allergies Coded Allergies: No Known Drug Allergies (Unverified , 11/26/21) Patient Home Medication List Home Medication List Reviewed: Yes Amlodipine Besylate (Norvasc) 10 Mg Tablet, 10 MG PO DAILY, (Reported) Entered as Reported by: CARMELO CONCEPCION on 12/05/21922 Aspirin (Aspirin EC) 81 Mg Tablet.dr, 81 MG PO DAILY, (Reported) Entered as Reported by: CARMELO CONCEPCION on 12/05/21922 Atorvastatin Calcium (Atorvastatin Calcium) 20 Mg Tablet, 20 MG PO HS, (Reported ) Entered as Reported by: CARMELO CONCEPCION on 12/05/21922 Bupropion HCl (Bupropion HCl Sr) 100 Mg Tablet.er, 100 MG PO BID, (Reported) Entered as Reported by: CARMELO CONCEPCION on 12/05/21922 Clopidogrel Bisulfate (Clopidogrel) 75 Mg Tablet, 75 MG PO DAILY Prescribed by: CHEN ESCALONA on 12/06/21805 Furosemide (Furosemide) 20 Mg Tablet, 20 MG PO DAILY, (Reported) Entered as Reported by: CARMELO CONCEPCION on 12/05/21922 Levothyroxine Sodium (Levothyroxine) 125 Mcg Capsule, 125 MCG PO DAILY, (Repo rted) Entered as Reported by: CARMELO CONCEPCION on 12/05/21922 Methocarbamol (Methocarbamol) 750 Mg Tablet, 750 MG PO Q8H PRN for muscle spasms/neck pain Prescribed by: REMEDIOS CARREON on 11/04/22 100 Potassium Chloride (Potassium Chloride) 10 Meq Capsule.er, 10 MEQ PO DAILY, (Reported) Entered as Reported by: CARMELO CONCEPCION on 12/05/21922 Tamsulosin HCl (Flomax) 0.4 Mg Cap, 0.4 MG PO DAILY, (Reported) Entered as Reported by: CARMELO CONCEPCION on 12/05/21923 Review of Systems Review of Systems Constitutional: see HPI; No chills; dizziness; No fever Eyes: No Symptoms Reported Ears, Nose, Mouth, Throat: no symptoms reported Respiratory: no symptoms reported Cardiovascular: no symptoms reported Gastrointestinal: see HPI Genitourinary: No dysuria Musculoskeletal: no symptoms reported Skin: no symptoms reported Psychiatric/Neurological: See HPI Past [id number] Hx Past Medical History Surgery/Hospitalization HX: Hypertension, hyperlipidemia, hypothyroid, BPH, coronary artery disease with stent in 2018 and December 05, 2021, peripheral artery disease, renal stent, femoral stent, AAA with graft in June 2020, multiple TIAs, loop recorder Surgeries: Yes Abdominal, Coronary Stent, Vascular Surgery Respiratory: Yes COPD Currently Using CPAP: No Cardiac: Yes Aneurysm, Coronary Artery Disease, High Cholesterol, Hypertension, Peripheral Vascular, Valvular Heart Disease Neurological: Yes TIA Genitourinary: Yes Benign Prostatic Hyperpl, UTI-Chronic Gastrointestinal: No Musculoskeletal: No Endocrine: Yes Hypothyroidsim HEENT: No Cancer: No Psychosocial: Yes Depression Integumentary: No Physical Exam Vital Signs Capillary Refill : Height, Weight, BMI Height: '" Weight: lbs. oz. kg; 35.00 BMI Method: General Appearance: other (chronically ill appearing, slow slurring speech) HEENT: PERRL/EOMI, pharynx normal Neck: non-tender, full range of motion, supple, normal inspection Cardiovascular: normal peripheral pulses, regular rate, rhythm Respiratory: chest non-tender, lungs clear, normal breath sounds Gastrointestinal: normal bowel sounds, soft, no pulsatile mass Back: no CVA tenderness, no vertebral tenderness Extremities: normal range of motion, non-tender, normal capillary refill Neurologic/Psychiatric: alert, oriented x 3 Skin: normal color, warm/dry [place] Coma Score Best Eye Response: (4) Open Spontaneously Best Verbal Response: (5) Oriented Best Motor Response: (6) Obeys Commands Freddie Total: 15 Progress/Results/Core Measures Results/Orders Lab Results Laboratory Tests Test 01/27/23 21:10 01/27/23 21:20 01/27/23 21:25 01/27/23 21:35 Range/Units White Blood Count 8.6 4.3-11.0 10^3/uL Red Blood Count 5.26 4.30-5.52 10^6/uL Hemoglobin 16.0 13.3-17.7 g/dL Hematocrit 48 40-54 % Mean Corpuscular Volume 92 80-99 fL Mean Corpuscular Hemoglobin 30 25-34 pg Mean Corpuscular Hemoglobin Concent 33 32-36 g/dL Red Cell Distribution Width 14.7 H 10.0-14.5 % Platelet Count 140 130-400 10^3/uL Mean Platelet Volume 13.9 H 9.0-12.2 fL Immature Granulocyte % (Auto) 1 % Neutrophils (%) (Auto) 54 42-75 % Lymphocytes (%) (Auto) 34 12-44 % Monocytes (%) (Auto) 6 0-12 % Eosinophils (%) (Auto) 4 0-10 % Basophils (%) (Auto) 1 0-10 % Neutrophils # (Auto) 4.7 1.8-7.8 10^3/uL Lymphocytes # (Auto) 2.9 1.0-4.0 10^3/uL Monocytes # (Auto) 0.5 0.0-1.0 10^3/uL Eosinophils # (Auto) 0.4 H 0.0-0.3 10^3/uL Basophils # (Auto) 0.1 0.0-0.1 10^3/uL Immature Granulocyte # (Auto) 0.0 0.0-0.1 10^3/uL Percent Immature Platelet Fraction 20.6 H 0.0-7.6 % Prothrombin Time 13.0 12.2-14.7 SEC INR Comment 0.9 0.8-1.4 Activated Partial Thromboplast Time 24 24-35 SEC Troponin I < 0.30 <0.30 NG/ML Pro-B-Type Natriuretic Peptide 61.9 <125.0 PG/ML Lactic Acid Level 2.00 0.50-2.00 MMOL/L Urine Color YELLOW Urine Clarity CLEAR Urine pH 5.5 5-9 Urine Specific [place] 1.025 H 1.016-1.022 Urine Protein NEGATIVE NEGATIVE Urine Glucose (UA) NEGATIVE NEGATIVE Urine Ketones NEGATIVE NEGATIVE Urine Nitrite NEGATIVE NEGATIVE Urine Bilirubin NEGATIVE NEGATIVE Urine Urobilinogen 0.2 < = 1.0 MG/DL Urine Leukocyte Esterase NEGATIVE NEGATIVE Urine RBC (Auto) NEGATIVE NEGATIVE Urine RBC NONE /HPF Urine WBC RARE /HPF Urine Squamous Epithelial Cells 0-2 /HPF Urine Crystals NONE /LPF Urine Bacteria NEGATIVE /HPF Urine Casts NONE /LPF Urine Mucus MODERATE H /LPF Urine Culture Indicated NO Sodium Level 144 135-145 MMOL/L Potassium Level 3.1 L 3.6-5.0 MMOL/L Chloride Level 105 98-107 MMOL/L Carbon Dioxide Level 25 21-32 MMOL/L Anion Gap 14 5-14 MMOL/L Blood Urea Nitrogen 27 H 7-18 MG/DL Creatinine 2.09 H 0.60-1.30 MG/DL Estimat Glomerular Filtration Rate 33 BUN/Creatinine Ratio 13 Glucose Level 147 H 70-105 MG/DL Calcium Level 8.6 8.5-10.1 MG/DL Corrected Calcium 8.7 8.5-10.1 MG/DL Total Bilirubin 0.6 0.1-1.0 MG/DL Aspartate Amino Transf (AST/SGOT) 42 H 5-34 U/L Alanine Aminotransferase (ALT/SGPT) 25 0-55 U/L Alkaline Phosphatase 63 40-136 U/L Total Protein 6.5 6.4-8.2 GM/DL Albumin 3.9 3.2-4.5 GM/DL Lipase 32 8-78 U/L Serum Alcohol < 10 <10 MG/DL My Orders Orders - REMEDIOS CARREON MD Cbc With Automated Diff (01/27/23 21:10) Chest 1 View Ap/Pa Only (01/27/23 21:10) Ekg Tracing (01/27/23 21:10) Comprehensive Metabolic Panel (01/27/23 21:10) Protime With Inr (01/27/23 21:10) Partial Thromboplastin Time (01/27/23 21:10) O2 (01/27/23 21:10) Monitor-Rhythm Ecg Trace Only (01/27/23 21:10) Ed Iv/Invasive Line Start (01/27/23 21:10) Lipase (01/27/23 21:10) Troponin I Fs (01/27/23 21:10) Probnp Fs (01/27/23 21:10) Ns Iv 1000 Ml (Sodium Chloride 0.9%) (01/27/23 21:10) Ua Culture If Indicated (01/27/23 21:12) Alcohol (01/27/23 21:15) Blood Culture (01/27/23 21:25) Lactic Acid Analyzer (01/27/23 21:25) Straight Cath For Spec.-Adult (01/27/23 21:26) Potassium Chloride (Tablet) (K Dur Table (01/27/23 22:52) Orthostatic Vital Signs (Adult (01/27/23 22:53) Progress Progress Note #1: Progress Note Potential diagnosis of dehydration, pneumonia, UTI, sepsis, myocardial infarction, gastroenteritis. Obtain labs from peripheral IV that was initiated by EMS. Send blood work for complete blood count, comprehensive metabolic profile, troponin, proBNP, coagulation factors, urinalysis, chest x-ray. Administer normal saline 1 L IV fluid bolus for hydration. Placed on cardiac monitor technician and my initial interpretation shows sinus rhythm without ectopy or ST elevation. Electrocardiogram to further evaluate his rate and rhythm. He denies having pain or losing consciousness. Progress Note #2: Time: 21:42 Progress Note On my personal interpretation and review of the 1 view chest x-ray has no acute infiltrate or effusion. Appears similar to imaging from November 2021. His blood pressure initially was 83-95 systolic. Currently as he is receiving IV fluids and resting in the bed his blood pressure is up to 111/71. His oxygen saturation has been 88 to 91% on room air. Progress Note #3: Progress Note He did not have elevated white blood cell count for infection. His urine was clear of infection as well. His comprehensive metabolic profile showed mild hypokalemia with potassium of 3.1. His creatinine was slightly elevated to 2 up from his baseline of 1.4-1.5. His troponin was negative and he did not have an elevated proBNP. His chest x-ray was not showing effusion or infiltrate. Orthostatic vital signs did not show any acute hypotension and he denied being dizzy or lightheaded with changing positions. Administer potassium 20 mill equivalents p.o. x1 to help with his hypokalemia. Encouraged him to drink more fluids at home and make sure he uses a walker when he gets up and changes positions. Initial ECG Impression Date: January 27, 2023 Initial ECG Impression Time: 21:17 Initial ECG Rate: 72 Initial ECG Rhythm: Normal Sinus Initial ECG Comparisson: Unchanged (11/04/2022) Comment My personal interpretation and review of the electrocardiogram shows sinus rhythm with heart rate of 72 bpm. AL interval [address] elevation but he does have global T wave flattening. He has Q waves in the anterior and inferior leads. His QT interval is 422 ms with a QTc interval 446 ms. Overall appears similar to tracing from 11/04/2022. Diagnostic Imaging Diagonstic Imaging: Xray Plain Films/CT/US/NM/MRI: chest Comments [facility] [address] [place], [place] NAME: CASTILLO POSADA [facility] REC#: [id number] PT STATUS: REG ER : 1950 PHYSICIAN: REMEDIOS CARREON MD ADMIT DATE: 01/27/23/ER FS Signed Date of Exam:01/27/23 CHEST 1 VIEW AP/PA ONLY CHEST 1 VIEW AP/PA ONLY INDICATION: near syncope. COMPARISON: Chest radiograph 12/05/2021 FINDINGS: Lungs: Normal lung volume. No focal consolidation. Stable pulmonary vasculature. Pleura: No pleural effusion or pneumothorax. Heart and Mediastinum: Cardiomediastinal silhouette and great vessels of the thorax are stable. Osseous Structures and Soft Tissues: No acute osseous abnormality. Normal soft tissues. IMPRESSION: No acute cardiopulmonary process. Dictated by: Dictated on workstation # [id number] Dict: 01/27/232238 Trans: 01/27/232238 [facility] [place] [id number] Interpreted by: ROSEANNA MCDERMOTT DO Electronically signed by: ROSEANNA MCDERMOTT DO 01/27/232238 Reviewed: Reviewed by Me Focused Exam Lactate Level 01/27/23 21:20: Lactic Acid Level 2.00 Lactic Acid Level Laboratory Tests Test 01/27/23 21:20 Lactic Acid Level 2.00 MMOL/L (0.50-2.00) Departure Impression Primary Impression: Near syncope Additional Impressions: Fall from standing Qualified Codes: W19.XXXA - Unspecified fall, initial encounter Dehydration Hypokalemia Disposition: HOME, SELF-CARE Condition: Stable Departure-Patient Inst. Decision time for Depature: 22:50 Referrals: LIBERTAD GAMBOA MD (PCP) Primary Care Physician Patient Instructions: How to Use a Walker, Near Fainting (DC), Preventing Falls ED, Preventing Falls in Older Adults Add. Discharge Instructions: Use your walker whenever you get up to help stabilize you and help prevent you from falling. Drink at least 6 to 8 glasses of water a day to help ensure you are hydrated enough. Check back with primary care provider about further concerns. All discharge instructions reviewed with patient and/or family. Voiced understanding. REMEDIOS CARREON MD January 27, 2023 21:15
[2023-01-27 22:02] LABS: BILIRUBIN,URINE NEGATIVE (NEGATIVE); CLARITY,URINE CLEAR; COLOR,URINE YELLOW; GLUCOSE, URINE (UA) NEGATIVE (NEGATIVE); KETONES,URINE NEGATIVE (NEGATIVE); LEUKOCYTE ESTERASE ,URINE NEGATIVE (NEGATIVE); NITRITE,URINE NEGATIVE (NEGATIVE); PH,URINE 5.5 (5-9); PROTEIN,URINE NEGATIVE (NEGATIVE)
[2023-01-27 22:07] LABS: BACTERIA,URINE NEGATIVE /HPF; SQUAMOUS EPITHELIAL CELL,UR 0-2 /HPF; WBC,URINE RARE /HPF
[2023-01-27 22:08] LABS: BASOPHILS # (AUTO) 0.1 10^3/uL (0.0-0.1); BASOPHILS % (AUTO) 1 % (0-10); EOSINOPHILS # (AUTO) 0.4 10^3/uL (0.0-0.3); EOSINOPHILS % (AUTO) 4 % (0-10); HEMATOCRIT 48 % (40-54); LYMPHOCYTES # (AUTO) 2.9 10^3/uL (1.0-4.0); LYMPHOCYTES % (AUTO) 34 % (12-44); MEAN CORPUSCULAR HEMOGLOBIN 30 pg (25-34); MEAN CORPUSCULAR HGB CONC 33 g/dL (32-36); MEAN CORPUSCULAR VOLUME 92 fL (80-99); MEAN PLATELET VOLUME 13.9 fL (9.0-12.2); MONOCYTES # (AUTO) 0.5 10^3/uL (0.0-1.0); MONOCYTES % (AUTO) 6 % (0-12); NEUTROPHILS # (AUTO) 4.7 10^3/uL (1.8-7.8); NEUTROPHILS % (AUTO) 54 % (42-75); PLATELET COUNT 140 10^3/uL (130-400); WHITE BLOOD COUNT 8.6 10^3/uL (4.3-11.0)
[2023-01-27 22:09] LABS: INR 0.9 (0.8-1.4)
[2023-01-27 22:10] LABS: ALKALINE PHOSPHATASE 63 U/L (40-136); BILIRUBIN,TOTAL 0.6 MG/DL (0.1-1.0); BUN/CREATININE RATIO 13; CALCIUM 8.6 MG/DL (8.5-10.1); CARBON DIOXIDE 25 MMOL/L (21-32); CHLORIDE 105 MMOL/L (98-107); CREATININE SERUM 2.09 MG/DL (0.60-1.30); GFR ESTIMATED 33; GLUCOSE 147 MG/DL (70-105); POTASSIUM 3.1 MMOL/L (3.6-5.0); SODIUM 144 MMOL/L (135-145)
[2023-01-27 22:11] LABS: ALANINE AMINOTRANSFERASE 25 U/L (0-55); ALBUMIN 3.9 GM/DL (3.2-4.5); LIPASE 32 U/L (8-78); TOTAL PROTEIN 6.5 GM/DL (6.4-8.2)
--- NOTE | 2023-01-27 22:40 | Diagnostic Imaging Report ---
CHEST 1 VIEW AP/PA ONLY INDICATION: near syncope. COMPARISON: Chest radiograph 12/05/2021 FINDINGS: Lungs: Normal lung volume. No focal consolidation. Stable pulmonary vasculature. Pleura: No pleural effusion or pneumothorax. Heart and Mediastinum: Cardiomediastinal silhouette and great vessels of the thorax are stable. Osseous Structures and Soft Tissues: No acute osseous abnormality. Normal soft tissues. IMPRESSION: No acute cardiopulmonary process. Dictated by: Dictated on workstation # [id number]
[2023-01-27 22:45] VITALS: BP_SYST 114; BP_SYST 137; BP_SYST 94; BP_DIAS 63; BP_DIAS 84; BP_DIAS 86
[2023-01-27] MEDS ORDERED: KCL 20 MEQ TAB (K-DUR) PO STA (22:52)
[2023-01-27 23:00] VITALS: BP 137/84
[2023-01-28] MEDS ORDERED: ISOS30TA82 PO (02:35)
== END 2023-01-27 23:00 | disposition home or self-care (01) ==
LOC: EDUNIT# 20:57 → ER FS 20:58
DX: R55 Syncope and collapse (principal); E86.0 Dehydration; E87.6 Hypokalemia; R11.2 Nausea with vomiting, unspecified; Z28.310 Unvaccinated for COVID-19; W17.89XA Other fall from one level to another, initial encounter; Y92.009 Unspecified place in unspecified non-institutional (private) residence as the place of occurrence of the external cause
CPT/HCPCS: 36415; 51701; 71045; 80053; 81000; 83605; 83690; 83880; 84484; 85025; 85610; 85730; 87040; 93005; 93041; 99284; G0480; 80320

== ENCOUNTER 2023-04-28 16:04 | Emergency (ER) | payer MEDICARE ==
[~2023-04-28 16:04] MED LIST changes: +ISOS30TA82 PO; -POTA10CA44 PO; +POTA10CA84 PO
[2023-04-28] MEDS ORDERED: NS IV 1000 ML 1,000 ML IV SCH (16:15)
[2023-04-28] MEDS ORDERED: CEFEPIME INJECTION 1,000 MG in NS (IVPB) 50 ML 50 ML IV ONE (16:15)
--- NOTE | 2023-04-28 16:27 | ED General ---
General Stated Complaint: LETHARGY,AMS,VOMITNG,UTI SYMPTOMS Source of Information: Patient, EMS, Family, Old Records Exam Limitations: Other (patient condition) History of Present Illness Date Seen by Provider: Apr 28, 2023 Time Seen by Provider: 16:04 Initial Comments 72yoM with PMH of HTN, HLD, hypothyroid, CAD with stenting, PVD with renal and femoral stent, AAA with graft, BPH, and multiple TIAs coming in via EMS from home due to altered mental status. Patient seen at his usual state of health on Friday. Family was checking on him today, he was sitting on the couch, not really responding. On EMS arrival, he was saying some words, glucose around 170, blood pressure initially low then high, they were unsure if it was accurate. They report his oxygen was 88% on room air, he was placed on 4 L. He does not wear oxygen at baseline. They did not note any focal neurodeficits. He is denying any pain anywhere at this time. Per family, this occurred a couple years ago when he just decides to not take care of himself, and will just sit on the couch and do nothing. Typically when this occurs, they state he has had a UTI in the past. Allergies and Home Medications Allergies Coded Allergies: No Known Drug Allergies (Unverified , 11/26/21) Patient Home Medication List Home Medication List Reviewed: Yes Amlodipine Besylate (Norvasc) 10 Mg Tablet, 10 MG PO DAILY, (Reported) Entered as Reported by: CARMELO CONCEPCION on 12/05/21922 Aspirin (Aspirin EC) 81 Mg Tablet.dr, 81 MG PO DAILY, (Reported) Entered as Reported by: CARMELO CONCEPCION on 12/05/21922 Atorvastatin Calcium (Atorvastatin Calcium) 20 Mg Tablet, 20 MG PO HS, (Reported) Entered as Reported by: CARMELO CONCEPCION on 12/05/21922 Bupropion HCl (Bupropion HCl Sr) 100 Mg Tablet.er, 100 MG PO BID, (Reported) Entered as Reported by: CARMELO CONCEPCION on 12/05/21922 Clopidogrel Bisulfate (Clopidogrel) 75 Mg Tablet, 75 MG PO DAILY Prescribed by: CHEN ESCALONA on 12/06/21805 Furosemide (Furosemide) 20 Mg Tablet, 20 MG PO DAILY, (Reported) Entered as Reported by: CARMELO CONCEPCION on 12/05/21922 Isosorbide Mononitrate (Isosorbide Mononitrate ER) 30 Mg Tab.er.24h, 30 MG PO DAILY, (Reported) Entered as Reported by: YESENIA NATION on 01/28/23 0235 Levothyroxine Sodium (Levothyroxine) 125 Mcg Capsule, 125 MCG PO DAILY, (Repor enriqueta) Entered as Reported by: CARMELO CONCEPCION on 12/05/21922 Potassium Chloride (Potassium Chloride) 10 Meq Capsule.er, 10 MEQ PO DAILY, (Reported) Entered as Reported by: CARMELO CONCEPCION on 12/05/21922 Tamsulosin HCl (Flomax) 0.4 Mg Cap, 0.4 MG PO DAILY, (Reported) Entered as Reported by: CARMELO CONCEPCION on 12/05/21923 Review of Systems Review of Systems Constitutional: No fever EENTM: no symptoms reported Respiratory: see HPI Cardiovascular: no symptoms reported Gastrointestinal: no symptoms reported Genitourinary: no symptoms reported Psychiatric/Neurological: See HPI Past Nsndshc-Dnaxsf-Lxyjih Hx Patient Social History Substance use?: No Immunizations Up To Date First/Initial COVID19 Vaccinat: 2020 Second COVID19 Vaccination Beny: 2020 Past Medical History Surgery/Hospitalization HX: Hypertension, hyperlipidemia, hypothyroid, BPH, coronary artery diseasewith stent in 2018 and December 05, 2021, peripheral artery disease, renalstent, femoral stent, AAA with graft in June 2020, multiple TIAs, looprecorder Surgeries: Yes Abdominal, Coronary Stent, Vascular Surgery Respiratory: Yes COPD Currently Using CPAP: No Cardiac: Yes Aneurysm, Coronary Artery Disease, High Cholesterol, Hypertension, Peripheral Vascular, Valvular Heart Disease Neurological: Yes TIA Genitourinary: Yes Benign Prostatic Hyperpl, UTI-Chronic Gastrointestinal: No Musculoskeletal: No Endocrine: Yes Hypothyroidsim HEENT: No Cancer: No Psychosocial: Yes Depression Integumentary: No Physical Exam Vital Signs Vital Signs - First Documented 04/28/23 16:06 Temp 35.4 Pulse 89 Resp 24 B/P (MAP) 115/87 (96) Pulse Ox 94 O2 Delivery OxyMask O2 Flow Rate 6.00 Capillary Refill : Height, Weight, BMI Height: '" Weight: lbs. oz. kg; 35.00 BMI Method: General Appearance: Other (Disheveled, smells of urine) Eyes: Bilateral Eye Normal Inspection, Bilateral Eye PERRL, Bilateral Eye EOMI HEENT: PERRL/EOMI, Other (Dry mucous membranes) Neck: Full Range of Motion, Normal Inspection, Non Tender, Supple Respiratory: Chest Non Tender, Lungs Clear, Normal Breath Sounds, No Accessory Muscle Use, No Respiratory Distress Cardiovascular: Regular Rate, Rhythm, Normal Peripheral Pulses Gastrointestinal: Normal Bowel Sounds, Non Tender, Soft; No Distended, No Guarding Back: Normal Inspection, No CVA Tenderness, No Vertebral Tenderness Extremity: Normal Capillary Refill, Normal Range of Motion, Non Tender, No Calf Tenderness, Pedal Edema Neurologic/Psychiatric: Alert, No Motor/Sensory Deficits, Normal 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, 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 Norm as Tested, Other (Oriented to person only) Skin: Normal Color, Warm/Dry Focused Exam Lactate Level 04/28/23 16:18: Lactic Acid Level 6.28*H Lactic Acid Level Laboratory Tests Test 04/28/23 16:18 Lactic Acid Level 6.28 MMOL/L (0.50-2.00) *H Progress/Results/Core Measures Suspected Sepsis SIRS Temperature: Pulse: Respiratory Rate: Laboratory Tests 04/28/23 16:18: White Blood Count 9.7 Blood Pressure / Mean: 04/28/23 16:18: Lactic Acid Level 6.28*H Laboratory Tests 04/28/23 16:18: Creatinine 8.13H, INR Comment 1.0, Platelet Count 176, Total Bilirubin 1.4H Results/Orders Lab Results Laboratory Tests Test 04/28/23 16:18 04/28/23 16:30 04/28/23 16:35 Range/Units White Blood Count 9.7 4.3-11.0 10^3/uL Red Blood Count 5.82 H 4.30-5.52 10^6/uL Hemoglobin 18.3 H 13.3-17.7 g/dL Hematocrit 54 40-54 % Mean Corpuscular Volume 93 80-99 fL Mean Corpuscular Hemoglobin 31 25-34 pg Mean Corpuscular Hemoglobin Concent 34 32-36 g/dL Red Cell Distribution Width 14.3 10.0-14.5 % Platelet Count 176 130-400 10^3/uL Mean Platelet Volume 13.2 H 9.0-12.2 fL Immature Granulocyte % (Auto) 1 % Neutrophils (%) (Auto) 78 H 42-75 % Lymphocytes (%) (Auto) 12 12-44 % Monocytes (%) (Auto) 9 0-12 % Eosinophils (%) (Auto) 0 0-10 % Basophils (%) (Auto) 1 0-10 % Neutrophils # (Auto) 7.5 1.8-7.8 10^3/uL Lymphocytes # (Auto) 1.2 1.0-4.0 10^3/uL Monocytes # (Auto) 0.8 0.0-1.0 10^3/uL Eosinophils # (Auto) 0.0 0.0-0.3 10^3/uL Basophils # (Auto) 0.1 0.0-0.1 10^3/uL Immature Granulocyte # (Auto) 0.1 0.0-0.1 10^3/uL Neutrophils % (Manual) 24 % Lymphocytes % (Manual) 18 % Monocytes % (Manual) 9 % Metamyelocytes % 1 % Band Neutrophils 48 % Percent Immature Platelet Fraction 28.1 H 0.0-7.6 % Blood Morphology Comment NORMAL Prothrombin Time 13.6 12.2-14.7 SEC INR Comment 1.0 0.8-1.4 Activated Partial Thromboplast Time 26 24-35 SEC Sodium Level 143 135-145 MMOL/L Potassium Level 3.7 3.6-5.0 MMOL/L Chloride Level 87 L 98-107 MMOL/L Carbon Dioxide Level 23 21-32 MMOL/L Anion Gap 33 H 5-14 MMOL/L Blood Urea Nitrogen 66 H 7-18 MG/DL Creatinine 8.13 H 0.60-1.30 MG/DL Estimat Glomerular Filtration Rate 7 BUN/Creatinine Ratio 8 Glucose Level 151 H 70-105 MG/DL Lactic Acid Level 6.28 *H 0.50-2.00 MMOL/L Calcium Level 11.2 H 8.5-10.1 MG/DL Corrected Calcium 8.5-10.1 MG/DL Total Bilirubin 1.4 H 0.1-1.0 MG/DL Aspartate Amino Transf (AST/SGOT) 26 5-34 U/L Alanine Aminotransferase (ALT/SGPT) 42 0-55 U/L Alkaline Phosphatase 84 40-136 U/L Troponin I < 0.30 <0.30 NG/ML Pro-B-Type Natriuretic Peptide 1622.0 H <125.0 PG/ML Total Protein 9.1 H 6.4-8.2 GM/DL Albumin 5.2 H 3.2-4.5 GM/DL Urine Color YELLOW Urine Clarity CLEAR Urine pH 6.0 5-9 Urine Specific [place] 1.025 H 1.016-1.022 Urine Protein 2+ H NEGATIVE Urine Glucose (UA) NEGATIVE NEGATIVE Urine Ketones NEGATIVE NEGATIVE Urine Nitrite NEGATIVE NEGATIVE Urine Bilirubin 1+ H NEGATIVE Urine Urobilinogen 0.2 < = 1.0 MG/DL Urine Leukocyte Esterase NEGATIVE NEGATIVE Urine RBC (Auto) NEGATIVE NEGATIVE Urine RBC NONE /HPF Urine WBC NONE /HPF Urine Squamous Epithelial Cells 0-2 /HPF Urine Crystals NONE /LPF Urine Bacteria TRACE /HPF Urine Casts PRESENT /LPF Urine Hyaline Casts 5-10 H /LPF Urine Mucus SMALL H /LPF Urine Culture Indicated CULTURE PENDING SARS-CoV-2 RNA (RT-PCR) Not Detected Not Detecte My Orders Orders - LEONOR YANG MD Ct Head Wo-R/O Stroke (04/28/23 16:11) Cbc With Automated Diff (04/28/23 16:11) Comprehensive Metabolic Panel (04/28/23 16:11) Blood Culture (04/28/23 16:11) Sputum Culture (04/28/23 16:11) Urinalysis (04/28/23 16:11) Urine Culture (04/28/23 16:11) Protime With Inr (04/28/23 16:11) Partial Thromboplastin Time (04/28/23 16:11) Chest 1 View Ap/Pa Only (04/28/23 16:11) Ed Iv/Invasive Line Start (04/28/23 16:11) Ekg Tracing (04/28/23 16:11) Vital Signs Adult Sepsis Patie Q15M (04/28/23 16:11) O2 (04/28/23 16:11) Remove Rings In Anticipation O (04/28/23 16:11) Lactic Acid Analyzer (04/28/23 16:11) Ns Iv 1000 Ml (Sodium Chloride 0.9%) (04/28/23 16:15) Cefepime Injection (Cefepime Injection) (04/28/23 16:15) Covid 19 Inhouse Test (04/28/23 16:11) Probnp Fs (04/28/23 16:11) Troponin I Fs (04/28/23 16:11) Catheter(Urinary) Insert & Ass 03,15 (04/28/23 16:11) Ekg Tracing (04/28/23 17:14) Ns Iv 1000 Ml (Sodium Chloride 0.9%) (04/28/23 17:16) Manual Differential (04/28/23 16:18) Medications Given in ED Current Medications Medications Dose Ordered Sig/Hemalatha Route Start Time Stop Time Status Last Admin Dose Admin Cefepime HCl 1000 mg/Sodium Chloride 50 ml @ 100 mls/hr ONCE ONCE IV 04/28/23 16:15 04/28/23 16:44 DC 04/28/23 16:50 100 MLS/HR Vital Signs/I&O 04/28/23 16:06 Temp 35.4 Pulse 89 Resp 24 B/P (MAP) 115/87 (96) Pulse Ox 94 O2 Delivery OxyMask O2 Flow Rate 6.00 Capillary Refill : Progress Note : Progress Note 72-year-old male with above history coming in due to altered mental status. Patient was hypoxic on presentation and placed on 6 L oxygen which is new for him. He does not have anything focal on exam, but is very confused and intermittently responding grossly with mumbling. EKG ordered and interpreted by me showing no STEMI x2 with repeat. Chest x-ray with likely some pulmonary edema on my interpretation. CT head with no obvious bleed on my interpretation, and no other acute abnormalities per radiology. An IV was placed and basic labs were obtained and were significant for normal white blood cell count, elevated hemoglobin, likely hemoconcentrated, very elevated creatinine greater than 8, elevated BUN, elevated proBNP, normal potassium. Urinalysis was obtained via Cheney catheter and he is making a small amount of urine. This was negative for infection. He was empirically given cefepime for potential infection, although I suspect he is just very volume depleted. This is complicated by his likely pulmonary edema and history of heart failure on Lasix. I confirmed that he is full code. We will have to give the fluids relatively slowly so he does not go into worsening pulmonary edema and worsening respiratory failure. I do believe he needs to fluids however, the benefits likely outweigh the risk. Unfortunately, we do not have nephrology in our hospital system, and he will need to be transferred to a different facility. Family showed preference for [facility]. [facility] did call back, and Dr. Law excepted the patient for transfer to their intensive care unit. I am concerned that the patient already has pulmonary edema and respiratory failure, although he clearly is very dry and needs fluids for his kidney failure. He is getting IV fluids, but I am worried his respiratory failure will worsen. I want him to get to definitive care quicker, so we will fly him via helicopter. ECG Initial ECG Impression Date: Apr 28, 2023 Initial ECG Impression Time: 16:53 Initial ECG Rate: 96 Initial ECG Rhythm: Normal Sinus Comment Narrow QRS with a duration of 118, likely left axis deviation, incomplete right bundle, there is significant artifact, but no STEMI EKG : EKG Time: 17:16 Rate: 88 Rhythm: Normal Sinus Comment No significant changes from prior, no STEMI Diagnostic Imaging Diagonstic Imaging: Xray (chest), CT (head) Comments [facility] [place] NAME: SWETHACASTILLO [employer] REC#: [id number] PT STATUS: REG ER : 1950 PHYSICIAN: LEONOR YANG MD ADMIT DATE: 04/28/23/ER FS Draft Date of Exam:04/28/23 CHEST 1 VIEW AP/PA ONLY INDICATION: Altered mental status. TECHNIQUE: Single view chest, 4:25 p.m. CORRELATION STUDY: 01/27/2023. FINDINGS: Heart size and mediastinum are enlarged and slightly more prominent from prior. Vasculature also appears slightly increased. Electronic device is unchanged over the central lower chest. Minimal atelectasis or less likely infiltrate at the left lung base. Right lung clear. IMPRESSION: 1. Heart size, mediastinum, and vasculature overall appear more prominent from prior suggesting a component of edema. Dictated on workstation # [id number] Dict: 04/28/23 1641 Trans: 04/28/23 1645 [id number] Interpreted by: PILY TADEO DO Electronically signed by: [facility]ITALCompar[facility]imPIED[facility], [place] NAME: SWETHACASTILLO [employer] REC#: [id number] PT STATUS: REG ER : 1950 PHYSICIAN: LEONOR YANG MD ADMIT DATE: 04/28/23/ER FS Signed Date of Exam:04/28/23 CT HEAD WO-R/O STROKE PROCEDURE: CT head wo r/o stroke. TECHNIQUE: Multiple contiguous axial images were obtained through the brain without the use of intravenous contrast. Auto Exposure Controls were utilized during the CT exam to meet ALARA standards for radiation dose reduction. INDICATION: Left facial droop. COMPARISON: I have no priors. There is generalized cerebral cortical atrophy, ventricular calibers are congruent with the degree of sulcation. No chelsea hydrocephalus. No focal or generalized cerebral edema. No findings suggestive of an elevation of the intracerebral pressures. No sulcal effacement. The basilar cisterns patent. There is left maxillary sinus occlusion. No paranasal sinus air-fluid level. No calvarial fracture deformity. There are intracranial atherosclerotic vascular calcifications chronic. Incidental fat along the falx and anteroinferiorly noted. No pneumocephalus. IMPRESSION: Generalized cerebral cortical atrophy but no hemorrhage, edema or chelsea hydrocephalus. Some chronic left maxillary sinus disease. No acute appearing abnormality identified. Dictated by: Dictated on workstation # [id number] Dict: 04/28/23 165 Trans: 04/28/231710 [facility] [id number] Interpreted by: FLORENCIO LANGE Electronically signed by: FLORENCIO LANGE 04/28/231710 Departure Impression Primary Impression: ARF (acute renal failure) Qualified Codes: N17.8 - Other acute kidney failure Additional Impression: Respiratory failure Qualified Codes: J96.01 - Acute respiratory failure with hypoxia Disposition: XFER SHT-TRM HOSP Condition: Stable Admissions Decision to Admit/Date: Apr 28, 2023 Time/Decision to Admit Time: 17:15 Transfer Transfer Reason: Exceeds level of care (needs nephrology) Transfer Progress Notes Contacted [facility] at [phone], called back with acceptance by Dr. Law at 0105. Awaiting bed assignment. Transfer Facility: [facility] Method of Transfer: Air Departure-Patient Inst. Referrals: LIBERTAD GAMBOA MD (PCP/Family) Primary Care Physician LEONOR YANG MD Apr 28, 2023 16:27
[2023-04-28 16:38] LABS: CLARITY,URINE CLEAR; COLOR,URINE YELLOW; GLUCOSE, URINE (UA) NEGATIVE (NEGATIVE); KETONES,URINE NEGATIVE (NEGATIVE); LEUKOCYTE ESTERASE ,URINE NEGATIVE (NEGATIVE); NITRITE,URINE NEGATIVE (NEGATIVE); PROTEIN,URINE 2+ (NEGATIVE)
--- NOTE | 2023-04-28 16:45 | Diagnostic Imaging Report ---
INDICATION: Altered mental status. TECHNIQUE: Single view chest, 4:25 p.m. CORRELATION STUDY: 01/27/2023. FINDINGS: Heart size and mediastinum are enlarged and slightly more prominent from prior. Vasculature also appears slightly increased. Electronic device is unchanged over the central lower chest. Minimal atelectasis or less likely infiltrate at the left lung base. Right lung clear. IMPRESSION: 1. Heart size, mediastinum, and vasculature overall appear more prominent from prior suggesting a component of edema. Dictated by: Dictated on workstation # [id number]
[2023-04-28 16:48] LABS: BASOPHILS # (AUTO) 0.1 10^3/uL (0.0-0.1); BASOPHILS % (AUTO) 1 % (0-10); EOSINOPHILS % (AUTO) 0 % (0-10); HEMATOCRIT 54 % (40-54); HEMOGLOBIN 18.3 g/dL (13.3-17.7); LYMPHOCYTES # (AUTO) 1.2 10^3/uL (1.0-4.0); LYMPHOCYTES % (AUTO) 12 % (12-44); MEAN CORPUSCULAR HEMOGLOBIN 31 pg (25-34); MEAN CORPUSCULAR HGB CONC 34 g/dL (32-36); MEAN CORPUSCULAR VOLUME 93 fL (80-99); MEAN PLATELET VOLUME 13.2 fL (9.0-12.2); MONOCYTES # (AUTO) 0.8 10^3/uL (0.0-1.0); MONOCYTES % (AUTO) 9 % (0-12); NEUTROPHILS # (AUTO) 7.5 10^3/uL (1.8-7.8); NEUTROPHILS % (AUTO) 78 % (42-75); PLATELET COUNT 176 10^3/uL (130-400); WHITE BLOOD COUNT 9.7 10^3/uL (4.3-11.0)
[2023-04-28 16:55] LABS: BACTERIA,URINE TRACE /HPF; SQUAMOUS EPITHELIAL CELL,UR 0-2 /HPF
[2023-04-28 16:55] LABS: PROTHROMBIN TIME PATIENT 13.6 SEC (12.2-14.7)
--- NOTE | 2023-04-28 16:57 | Diagnostic Imaging Report ---
PROCEDURE: CT head wo r/o stroke. TECHNIQUE: Multiple contiguous axial images were obtained through the brain without the use of intravenous contrast. Auto Exposure Controls were utilized during the CT exam to meet ALARA standards for radiation dose reduction. INDICATION: Left facial droop. COMPARISON: I have no priors. There is generalized cerebral cortical atrophy, ventricular calibers are congruent with the degree of sulcation. No chelsea hydrocephalus. No focal or generalized cerebral edema. No findings suggestive of an elevation of the intracerebral pressures. No sulcal effacement. The basilar cisterns patent. There is left maxillary sinus occlusion. No paranasal sinus air-fluid level. No calvarial fracture deformity. There are intracranial atherosclerotic vascular calcifications chronic. Incidental fat along the falx and anteroinferiorly noted. No pneumocephalus. IMPRESSION: Generalized cerebral cortical atrophy but no hemorrhage, edema or chelsea hydrocephalus. Some chronic left maxillary sinus disease. No acute appearing abnormality identified. Dictated by: Dictated on workstation # [id number]
[2023-04-28 16:59] LABS: CARBON DIOXIDE 23 MMOL/L (21-32); CHLORIDE 87 MMOL/L (98-107); POTASSIUM 3.7 MMOL/L (3.6-5.0); SODIUM 143 MMOL/L (135-145)
[2023-04-28 17:00] LABS: ALANINE AMINOTRANSFERASE 42 U/L (0-55); ALBUMIN 5.2 GM/DL (3.2-4.5); ALKALINE PHOSPHATASE 84 U/L (40-136); BILIRUBIN,TOTAL 1.4 MG/DL (0.1-1.0); BUN/CREATININE RATIO 8; CALCIUM 11.2 MG/DL (8.5-10.1); CREATININE SERUM 8.13 MG/DL (0.60-1.30); GFR ESTIMATED 7; GLUCOSE 151 MG/DL (70-105); TOTAL PROTEIN 9.1 GM/DL (6.4-8.2)
[2023-04-28] MEDS ORDERED: NS IV 1000 ML 1,000 ML IV STA (17:16)
[2023-04-28 17:20] LABS: BAND NEUTROPHILS 48 %; LYMPHOCYTES % (MANUAL) 18 %; METAMYELOCYTES % 1 %; MONOCYTES % (MANUAL) 9 %; NEUTROPHILS % (MANUAL) 24 %; RBC MORPH NORMAL
[2023-04-28 17:26] LABS: BILIRUBIN,URINE 1+ (NEGATIVE)
[2023-04-28 18:55] VITALS: BP 116/76
== END 2023-04-28 19:00 | disposition short-term general hospital (02) ==
LOC: EDUNIT# 16:04 → ER FS 16:07
DX: J96.90 Respiratory failure, unspecified, unspecified whether with hypoxia or hypercapnia (principal); N17.9 Acute kidney failure, unspecified; R79.89 Other specified abnormal findings of blood chemistry; Z20.822 Contact with and (suspected) exposure to COVID-19
CPT/HCPCS: 36415; 51702; 70450; 71045; 80053; 81000; 83605; 83880; 84484; 85007; 85027; 85610; 85730; 87040; 87077; 87088; 87636; 93005